=== PATIENT | female | born 1970 | race Caucasian/White ===

== ENCOUNTER 2021-10-25 04:50 | Emergency (ER) | payer OTHER ==
[~2021-10-25] VITALS: Ht 157.5 cm; Wt 59.9 kg
[2021-10-25 05:02] VITALS: BP 157/88
[2021-10-25] MEDS ORDERED: CIPR500T4 PO (05:43)
[2021-10-25 05:52] VITALS: BP 157/88
== END 2021-10-25 05:52 | disposition home or self-care (01) ==
LOC: MED 04:50
DX: N39.0 Urinary tract infection, site not specified (principal); N81.10 Cystocele, unspecified; F17.200 Nicotine dependence, unspecified, uncomplicated; I10 Essential (primary) hypertension; Z90.49 Acquired absence of other specified parts of digestive tract; Z88.8 Allergy status to other drugs, medicaments and biological substances; Z98.890 Other specified postprocedural states
CPT/HCPCS: 81002; 81025; 99283